=== PATIENT | female | born 1980 | race Caucasian/White ===

== ENCOUNTER 2016-11-14 18:50 | Emergency (ER) | payer MEDICAID, OTHER ==
[~2016-11-14] VITALS: Ht 152.4 cm; Wt 57.6 kg
[2016-11-14 19:09] VITALS: BP 140/77
--- NOTE | 2016-11-14 21:33 | NUR ---
PATIENT PRESENTS TO ED WITH MIGRAINE X 1 DAY 12/18 AT THE MOMENT . PT STATES SHE TOOK A MIGRAINE MEDICATION AT HOME AND SINCE THEN IS HAVING RELIEF.PT DENIES N/V/D; SKIN IS PINK/WARM/DRY; AAOX4 WITH EVEN AND STEADY GAIT; LUNGS CLEAR BL; HR EVEN AND REGULAR; PT DENIES ANY FEVER, CP, SOB, OR COUGH AT THIS TIME; PATIENT STATES PAIN OF 5/10 AT THIS TIME; VSS; PATIENT POSITIONED FOR COMFORT; HOB ELEVATED; BEDRAILS UP X2; BED DOWN. ER MD MADE AWARE OF PT STATUS.
--- NOTE | 2016-11-14 21:33 | NUR ---
TO ER BED 4
--- NOTE | 2016-11-14 21:43 | NUR ---
Patient being evaluated by physician DR CAMPOVERDE at bedside.
[2016-11-14] MEDS ORDERED: METOCLOPRAMIDE 10 MG TAB PO ONE (22:05)
[2016-11-14] MEDS ORDERED: KETOROLAC 30 MG/ML VIAL IM ONE (22:05)
[2016-11-14 23:45] VITALS: BP 127/79
--- NOTE | 2016-11-14 23:45 | NUR ---
Patient discharged with v/s stable. Written and verbal after care instructions given and explained. Patient alert, oriented and verbalized understanding of instructions. Ambulatory with steady gait. All questions addressed prior to discharge. ID band removed. Patient advised to follow up with PMD. Rx of TYLENOL #3 TAB given. Patient educated on indication of medication including possible reaction and side effects. Opportunity to ask questions provided and answered.
== END 2016-11-14 23:45 | disposition home or self-care (01) ==
LOC: EDBD 18:50 → MED 18:50
DX: G43.909 Migraine, unspecified, not intractable, without status migrainosus (principal); E78.00 Pure hypercholesterolemia, unspecified
CPT/HCPCS: 81002; 81025; 96372; 99283; J1885; J8597; Q0163